=== PATIENT | female | born 1990 | race Caucasian/White ===

== ENCOUNTER 2017-05-10 21:18 | Emergency (ER) | payer SELFPAY ==
[2017-05-10] MEDS ORDERED: DIAZEPAM INJ 10 MG/2 ML DISP.SYRIN IM ONE (23:36)
--- NOTE | 2017-05-10 23:38 | ER Document Report ---
HPI - HPI Patient complains to provider of: lower back pain Pain Level: 5 Context: Patient is a 27-year-old female who comes emergency department with chief complaint of low back pain and muscle spasm. She states she started having symptoms after the gym about 2 weeks ago, she denies any impact injury or fall, she does report history of the same. She states she was seen by her primary care and placed on cyclobenzaprine and naproxen, states that it has helped minimally. She denies change in bowel or bladder function, numbness, fever, or history of HIV/Hep C/diabetes or IVDA. - CARDIOVASCULAR Cardiovascular: DENIES: Chest pain - REPRODUCTIVE Reproductive: DENIES: : - DERM Skin Color: Normal, [place] Past Medical History - General Information source: Patient - Social History Smoking Status: Current Every Day Smoker Chew tobacco use (# tins/day): No Frequency of alcohol use: Occasional Drug Abuse: None Lives with: Family Family History: Arthritis, CAD, DM, Hyperlipidemia, Hypertension, Malignancy Pulmonary Medical History: Reports: Hx Asthma Renal/ Medical History: Denies: Hx Peritoneal Dialysis Past Surgical History: Reports: Hx Adenoidectomy, Hx Myringotomy, Hx Nose Surgery - cauterized, Hx Tonsillectomy - Immunizations Immunizations up to date: Yes Hx Diphtheria, Pertussis, Tetanus Vaccination: Yes - 2007 [facility] Provider Document - CONSTITUTIONAL General Appearance: WD/WN, Mild Distress - Patient moves with obvious stiffness and discomfort, when sitting she is not in any distress - INFECTION CONTROL TRAVEL OUTSIDE OF THE [place] IN LAST 30 DAYS: No - HEENT HEENT: Atraumatic, Normal ENT Exam, Normocephalic - NECK Neck: Normal Inspection - RESPIRATORY Respiratory: Breath Sounds Normal, No Respiratory Distress O2 Sat by Pulse Oximetry: 97 - CARDIOVASCULAR Cardiovascular: Regular Rate, Regular Rhythm - GI/ABDOMEN Gastrointestinal: Abdomen Soft, Abdomen Non-Tender - BACK Back: negative: Normal Inspection - Patient tender with palpable spasm mainly over the left mid to upper lumbar paraspinal musculature, also tender on the paraspinal musculature on the right. No midline tenderness, no saddle anesthesia, normal upper and lower extremity range of motion, strength, distal neurovascular exam. Negative straight leg raise and axial load testing. - MUSCULOSKELETAL/EXTREMETIES Musculoskeletal/Extremeties: MAEW, FROM, Non-Tender - NEURO Level of Consciousness: Awake, Alert, Appropriate Course - Re-evaluation Re-evalutation: No concerning deficits or physical exam findings on exam. Appears to be muscular spasm. Treating with Valium because of patient's persistent symptoms on naproxen and Flexeril. Discussed follow-up, return precautions. Patient states understanding and agreement. - Vital Signs Vital signs: Temp Pulse Resp BP Pulse Ox 98.2 F 96 20 127/79 H 97 05/10/17 21:49 05/10/17 21:49 05/10/17 21:49 05/10/17 21:49 05/10/17 21:49 Discharge - Discharge Clinical Impression: Lower back pain Qualifiers: Chronicity: acute Back pain laterality: bilateral Sciatica presence: without sciatica Qualified Code(s): M54.5 - Low back pain Condition: Stable Disposition: HOME, SELF-CARE Additional Instructions: Your examination is most consistent with muscular strain of the lower back/ lumbar musculature. Apply heat to the area, avoid lifting/twisting, rest, take the prescribed medication as directed. Continue naproxen. Follow-up with primary care for additional management. Return to the emergency department for any concerning worsening symptoms including loss of bowel or bladder function, numbness, fever, or any other concerning symptoms. Prescriptions: Diazepam [Valium 5 mg Tablet] 1 - 2 tab PO TID #15 tablet Forms: Return to Work Referrals: NICKI BROOKE PA [Primary Care Provider] - Follow up as needed
[2017-05-11 00:48] VITALS: BP 131/76
== END 2017-05-11 00:25 | disposition home or self-care (01) ==
LOC: ER 21:18
DX: M54.5 Low back pain (principal); M62.830 Muscle spasm of back; J45.909 Unspecified asthma, uncomplicated; F17.200 Nicotine dependence, unspecified, uncomplicated
CPT/HCPCS: 99283; J3360

== ENCOUNTER 2017-09-16 13:55 | Emergency (ER) | payer OTHER ==
[2017-09-16 14:18] VITALS: BP 117/78
[2017-09-16] MEDS ORDERED: ASPIRIN 325 MG TABLET PO ONE (14:31)
--- NOTE | 2017-09-16 14:33 | ER Document Report ---
ED Medical Screen (RME) - General Chief Complaint: Chest Congestion Stated Complaint: FLU SYMPTOMS CHEST PAIN Time Seen by Provider: 09/16/17 14:31 Mode of Arrival: Ambulatory Information source: Patient TRAVEL OUTSIDE OF THE [place] IN LAST 30 DAYS: No - HPI Patient complains to provider of: cp, cough Onset: Other - pt seen at earlier today and sent here for evaluation of CP. Also having cough and congestion for the past few days. Is a smoker. Did not get flu shot this year - Related Data Allergies/Adverse Reactions: No Known Allergies Allergy (Verified 09/16/17 13:57) Past Medical History Pulmonary Medical History: Reports: Hx Asthma Renal/ Medical History: Denies: Hx Peritoneal Dialysis Past Surgical History: Reports: Hx Adenoidectomy, Hx Myringotomy, Hx Nose Surgery - cauterized, Hx Tonsillectomy - Immunizations Immunizations up to date: Yes Hx Diphtheria, Pertussis, Tetanus Vaccination: Yes - 2007 Physical Exam - Vital signs Vitals: Temp Pulse Resp BP Pulse Ox 98.4 F 78 18 117/78 98 09/16/17 14:17 09/16/17 14:17 09/16/17 14:17 09/16/17 14:17 09/16/17 14:17 Course - Vital Signs Vital signs: Temp Pulse Resp BP Pulse Ox 98.4 F 78 18 117/78 98 09/16/17 14:17 09/16/17 14:17 09/16/17 14:17 09/16/17 14:17 09/16/17 14:17
[2017-09-16 15:00] LABS: ABSOLUTE BASOPHILS # (AUTO) 0.1 10^3/uL (0.0-0.2); ABSOLUTE EOSINOPHILS # (AUTO) 0.3 10^3/uL (0.0-0.6); ABSOLUTE LYMPHOCYTES (AUTO) 2.9 10^3/uL (0.5-4.7); ABSOLUTE MONOCYTES (AUTO) 0.5 10^3/uL (0.1-1.4); BASOPHILS % (AUTO) 0.7 % (0-2); EOSINOPHILS % (AUTO) 3.9 % (0-6); HEMATOCRIT 42.8 % (36.0-47.0); HEMOGLOBIN 14.5 g/dL (12.0-15.5); HGB HCT DIFFERENCE 0.7; LYMPHOCYTES % (AUTO) 37.5 % (13-45); MEAN CORPUSCULAR HEMOGLOBIN 28.6 pg (27.0-33.4); MEAN CORPUSCULAR HGB CONC 33.8 g/dL (32.0-36.0); MEAN CORPUSCULAR VOLUME 85 fl (80-97); MONOCYTES % (AUTO) 6.9 % (3-13); RED BLOOD COUNT 5.07 10^6/uL (3.72-5.28); RED CELL DISTRIBUTION WIDTH 12.9 % (11.5-14.0); WHITE BLOOD COUNT 7.8 10^3/uL (4.0-10.5)
[2017-09-16 15:21] LABS: ALANINE AMINOTRANSFERASE 58 U/L (9-52); ALBUMIN 4.5 g/dL (3.5-5.0); ALKALINE PHOSPHATASE 74 U/L (38-126); ANION GAP 13 (5-19); ASPARTATE AMINO TRANSFERASE 41 U/L (14-36); BILIRUBIN,DIRECT 0.3 mg/dL (0.0-0.4); BILIRUBIN,TOTAL 0.5 mg/dL (0.2-1.3); BLOOD UREA NITROGEN 10 mg/dL (7-20); CALCIUM 9.8 mg/dL (8.4-10.2); CARBON DIOXIDE 26 mmol/L (22-30); CHLORIDE 106 mmol/L (98-107); CREATINE KINASE 131 U/L (30-135); CREATININE RESULT 0.74 mg/dL (0.52-1.25); GLUCOSE 77 mg/dL (75-110); POTASSIUM 4.9 mmol/L (3.6-5.0); SODIUM 144.9 mmol/L (137-145); TOTAL PROTEIN 7.7 g/dL (6.3-8.2)
[2017-09-16 15:32] LABS: CREATINE KINASE MB 0.48 ng/mL (<4.55)
[2017-09-16 15:34] LABS: TROPONIN I < 0.012 ng/mL
--- NOTE | 2017-09-16 15:39 | RADIOLOGY REPORT (SQ) ---
EXAM DESCRIPTION: CHEST PA/LAT COMPLETED DATE/TIME: 09/16/2017 3:00 pm REASON FOR STUDY: cp COMPARISON: 09/13/2015 EXAM PARAMETERS: NUMBER OF VIEWS: two views TECHNIQUE: Digital Frontal and Lateral radiographic views of the chest acquired. RADIATION DOSE: NA LIMITATIONS: none FINDINGS: LUNGS AND PLEURA: No opacities, masses or pneumothorax. No pleural effusion. MEDIASTINUM AND HILAR STRUCTURES: No masses or contour abnormalities. HEART AND VASCULAR STRUCTURES: Heart normal size. No evidence for failure. BONES: No acute findings. HARDWARE: None in the chest. OTHER: No other significant finding. IMPRESSION: NO SIGNIFICANT RADIOGRAPHIC FINDING IN THE CHEST. TECHNICAL DOCUMENTATION: JOB ID: [id number] [employer]- All Rights Reserved
--- NOTE | 2017-09-16 17:32 | ER Document Report ---
ED General - General Chief Complaint: Chest Congestion Stated Complaint: FLU SYMPTOMS CHEST PAIN Time Seen by Provider: 09/16/17 14:31 Mode of Arrival: Ambulatory Notes: Patient says she has had flulike symptoms for the past 6-7 days. She has had a cough that has been productive of clear phlegm, sneezing a lot, runny nose, along with vomiting. Not having significant diarrhea, however. She has chest pains from coughing. It is located under her left lateral breast. Patient thinks she has had some fever, as well. Did not get a flu shot this year. Patient went to a local urgent care, but was dissatisfied with their attitude and service and left and came here. LMP August. On no control. Never had any abdominal surgeries. Cigarette smoker. TRAVEL OUTSIDE OF THE [place] IN LAST 30 DAYS: No - Related Data Allergies/Adverse Reactions: No Known Allergies Allergy (Verified 09/16/17 14:32) Past Medical History - General Information source: Patient - Social History Smoking Status: Current Every Day Smoker Chew tobacco use (# tins/day): No Frequency of alcohol use: Social Drug Abuse: None Family History: Arthritis, CAD, DM, Hyperlipidemia, Hypertension, Malignancy Patient has suicidal ideation: No Patient has homicidal ideation: No Pulmonary Medical History: Reports: Hx Asthma Endocrine Medical History: Reports: Hx Diabetes Mellitus Type 2 - Told she is borderline diabetic., Hx Hyperthyroidism - History of Shaina's thyroiditis. On thyroid medication. Past Surgical History: Reports: Hx Adenoidectomy, Hx Myringotomy, Hx Nose Surgery - cauterized, Hx Tonsillectomy - Immunizations Immunizations up to date: Yes Hx Diphtheria, Pertussis, Tetanus Vaccination: Yes - 2007 Review of Systems - Review of Systems Notes: REVIEW OF SYSTEMS: CONSTITUTIONAL : Has had a fever and feels hot. EENT: Denies eye, ear, nose or mouth or throat pain or other symptoms. Sounds nasally congested. CARDIOVASCULAR: see HPI RESPIRATORY: See HPI. GASTROINTESTINAL: Denies abdominal pain or diarrhea. Has had some vomiting. GENITOURINARY: Denies difficulty or painful urinating, urinary frequency, blood in urine. MUSCULOSKELETAL: Denies back or neck pain. Denies joint pain or swelling. SKIN: Denies rash or skin lesions. NEUROLOGICAL: Denies LOC or altered mental status. Denies headache. Denies sensory loss or motor deficits. ALL OTHER SYSTEMS REVIEWED AND NEGATIVE. Physical Exam - Vital signs Vitals: Temp Pulse Resp BP Pulse Ox 98.4 F 78 18 117/78 98 09/16/17 14:17 09/16/17 14:17 09/16/17 14:17 09/16/17 14:17 09/16/17 14:17 Interpretation: Normal - Notes Notes: PHYSICAL EXAMINATION: GENERAL: Well-appearing, in no acute distress. Sounds congested. Occasional cough. HEAD: Atraumatic, normocephalic. ENT: oropharynx clear without exudates. Moist mucous membranes. NECK: Normal range of motion, supple. LUNGS: Breath sounds clear and equal bilaterally. No wheezes present. HEART: Regular rate and rhythm without murmurs. Heart rate in the upper 50s ABDOMEN: Soft, nontender. No guarding or rebound. BACK: No tenderness throughout entire back. EXTREMITIES: Normal range of motion without pain. No evidence of DVT. NEUROLOGICAL: Normal speech, normal gait. Normal sensory, motor, and reflex exams. Awake, alert, and oriented x3. Cranial nerves normal. PSYCH: Normal mood, normal affect. SKIN: Warm, dry, no rashes. Course - Vital Signs Vital signs: Temp Pulse Resp BP Pulse Ox 98.4 F 78 18 117/78 98 09/16/17 14:17 09/16/17 14:17 09/16/17 14:17 09/16/17 14:17 09/16/17 14:17 - Laboratory Result Diagrams: 09/16/17 14:39 09/16/17 14:39 Laboratory results interpreted by me: 09/16/17 09/16/17 14:39 14:39 Plt Count 455 H AST 41 H ALT 58 H - Diagnostic Test Radiology results interpreted by me: 09/16/17 18:08 Chest x-ray was normal. All labs essentially normal. Discharge - Discharge Clinical Impression: URI (upper respiratory infection) Condition: Stable Additional Instructions: UPPER RESPIRATORY ILLNESS: You have a viral infection of the respiratory passages -- a "cold." This common infection causes nasal congestion, drainage, and often sore throat and cough. It is highly contagious. The disease usually lasts about 10 to 14 days. There is no "cure" for the viral infection -- it must run its course. If there is a complication, such as bacterial infection in the nose, sinuses, middle ear, or bronchial tubes, antibiotics may be required. The antibiotics won't affect the virus. Drink plenty of fluids. A humidifier may help. An expectorant medication or decongestant may make you more comfortable. Use acetaminophen or ibuprofen for fever or aches. See the doctor if fever persists over two days, if there is any significant worsening of your symptoms, or if you simply fail to improve as expected. NORMAL EXAM AND WORKUP: At this time, your examination and workup show no significant abnormality. No significant abnormal physical findings were noted. All laboratory, EKG, and imaging (x-ray, CT scans, ultrasound) studies that were ordered show no significant abnormality. Although your examination and all studies that were ordered showed no significant abnormal finding, there are no examinations and no studies that are 100% accurate. There is always the possibility that some abnormality could exist and not be detected with physical examination or within the limits and capabilities of laboratory and other studies. You should return or follow up as you were instructed on your visit today for further evaluation if your symptoms do not resolve. COUGH-SUPPRESSANT & EXPECTORANT MEDICATION: You are to use a cough medication as needed for relief of symptoms. This medicine is a combination of an expectorant (to make the mucous thinner and more easily "coughed up") and a cough suppressant (to reduce the frequency of coughing). The cough-suppressant medicine is related to narcotics. You may experience mild nausea and sleepiness. Some patients who are very sensitive to narcotics may have stomach pain from this medicine. Taking the medicine with food reduces these side effects. Do not drive or work with machinery until you know how this medicine affects you. The expectorant should have no side effects. Iodine-containing expectorants (such as organidin) should not be taken by persons with active thyroid disease unless approved by your doctor. Call the doctor if you develop shortness of breath, hives, rash, itching, lightheadedness, or severe nausea and vomiting. USE OF ACETAMINOPHEN (Tylenol): Acetaminophen may be taken for pain relief or fever control. It's much safer than aspirin, offering a wider range of "safe" dosages. It is safe during . Some brand names are Tylenol, Panadol, Datril, Anacin 3, Tempra, and Liquiprin. Acetaminophen can be repeated every four hours. The following are maximum recommended dosages: >89 pounds or adults 650 mg to 900 mg Acetaminophen can be repeated every four hours. Maximum dose not to exceed 4000 mg a day. SMOKING: If you smoke, you should stop smoking. The tar and chemicals in cigarette smoke are harmful. Smoking has been shown to cause: emphysema chronic bronchitis lung cancer mouth and throat cancer stomach and pancreas cancer premature aging defects In addition, smoking increases ear and lung infections in children of smokers. FOLLOW-UP CARE: If you have been referred to a physician for follow-up care, call the physician s office for an appointment as you were instructed or within the next two days. If you experience worsening or a significant change in your symptoms, notify the physician immediately or return to the Emergency Department at any time for re-evaluation. Prescriptions: Hydrocodone/Acetaminophen [[place] 5-325 mg Tablet] 1 tab PO Q4HP PRN #20 tablet PRN Reason: Cough Forms: Return to Work
--- NOTE | 2017-09-17 09:20 | EKG REPORT ---
SEVERITY:- NORMAL ECG - SINUS RHYTHM : Confirmed by: David Cooley MD 17-Sep-2017 09:19:44
== END 2017-09-16 19:00 | disposition home or self-care (01) ==
LOC: ER 13:55
DX: J06.9 Acute upper respiratory infection, unspecified (principal); R05 Cough; R06.7 Sneezing; R09.89 Other specified symptoms and signs involving the circulatory and respiratory systems; R11.10 Vomiting, unspecified; R07.89 Other chest pain; F17.210 Nicotine dependence, cigarettes, uncomplicated; J45.909 Unspecified asthma, uncomplicated
CPT/HCPCS: 36415; 71020; 80053; 81025; 82550; 82553; 84484; 85025; 93005; 93010; 99284

== ENCOUNTER → 2018-03-13 | Day surgery (SDC) | payer OTHER ==
[~2018-03-13] MED LIST: LIDOCAINE 1% INJ-PF (10 MG/ML) 30 ML SDV ONE
--- NOTE | 2018-03-13 14:40 | RADIOLOGY REPORT (SQ) ---
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 TECHNIQUE: Patient has a midline neck mass between the thyroid bone and height weight which has grow n in size. This is the lesion targeted for biopsy. The procedure was discussed with the patient and written informed consent obtained. A timeout was pe rformed to confirm the procedure and patient's identity. The skin of the neck was prepped and draped in sterile fashion and 1 mL of 1% lidocaine administered for local anesthesia. Under sonographic g uidance, fine needle aspiration biopsy was performed of the palpable midline neck mass. Three separate aspirations were performed. Hemostasis was obtained with direct manual compression. There were no immediate complications. LIMITATIONS: None. FINDINGS: PATHOLOGY: Pending. IMPRESSION: ULTRASOUND-GUIDED BIOPSY PERFORMED OF A MASS IN THE MIDLINE NECK BETWEEN THE THYROID GLA ND AND HYOID BONE, POSSIBLY A REST OF THYROID TISSUE ALONG THE THYROGLOSSAL DUCT. PATHOLOGY PENDING AT THE TIME OF DICTATION. COMMENT: Patient medication list reviewed: Yes- Quality ID# [id number]:Eligible professional attests to doc umenting in the medical record they obtained, updated, or reviewed the patient's current medications. TECHNICAL DOCUMENTATION: JOB ID: [id number] [employer]- All Rights Reserved Reading location - IP/workstation name: [email or web address]
== END ==
LOC: RAD 12:37
PROVIDERS: ATTEND Nurse Practitioner Community Health
DX: E04.9 Nontoxic goiter, unspecified (principal)
CPT/HCPCS: 88173 ×2; 88305 ×2; 60100; J3490

== ENCOUNTER 2018-04-28 06:36 | Emergency (ER) | payer OTHER ==
[2018-04-28] MEDS ORDERED: ONDANSETRON 4 MG TAB.RAPDIS PO ONE (07:38)
[2018-04-28] MEDS ORDERED: NORMAL SALINE 1000 ML 1,000 ML IV ONE (07:38)
[2018-04-28] MEDS ORDERED: FENTANYL CITRATE INJ/PF 100 MCG/2 ML AMPUL IV ONE (07:38)
[2018-04-28 08:36] LABS: ABSOLUTE BASOPHILS # (AUTO) 0.1 10^3/uL (0.0-0.2); ABSOLUTE EOSINOPHILS # (AUTO) 0.4 10^3/uL (0.0-0.6); ABSOLUTE LYMPHOCYTES (AUTO) 2.9 10^3/uL (0.5-4.7); ABSOLUTE MONOCYTES (AUTO) 0.7 10^3/uL (0.1-1.4); ABSOLUTE NEUT (AUTO) 6.2 10^3/uL (1.7-8.2); BASOPHILS % (AUTO) 0.7 % (0-2); EOSINOPHILS % (AUTO) 3.8 % (0-6); HEMATOCRIT 39.6 % (36.0-47.0); HEMOGLOBIN 13.6 g/dL (12.0-15.5); LYMPHOCYTES % (AUTO) 28.1 % (13-45); MEAN CORPUSCULAR HEMOGLOBIN 29.3 pg (27.0-33.4); MEAN CORPUSCULAR HGB CONC 34.3 g/dL (32.0-36.0); MEAN CORPUSCULAR VOLUME 86 fl (80-97); MONOCYTES % (AUTO) 7.2 % (3-13); PLATELET COUNT 424 10^3/uL (150-450); RED BLOOD COUNT 4.63 10^6/uL (3.72-5.28); RED CELL DISTRIBUTION WIDTH 13.1 % (11.5-14.0); SEGMENTED NEUTROPHILS % (AUTO) 60.2 % (42-78); TOTAL CELLS COUNTED % (AUTO) 100 %; WHITE BLOOD COUNT 10.3 10^3/uL (4.0-10.5)
[2018-04-28 08:39] LABS: ALANINE AMINOTRANSFERASE 19 U/L (9-52); ALBUMIN 4.1 g/dL (3.5-5.0); ALKALINE PHOSPHATASE 66 U/L (38-126); ANION GAP 10 (5-19); ASPARTATE AMINO TRANSFERASE 21 U/L (14-36); BILIRUBIN,DIRECT 0.2 mg/dL (0.0-0.4); BILIRUBIN,TOTAL 0.2 mg/dL (0.2-1.3); BLOOD UREA NITROGEN 13 mg/dL (7-20); CALCIUM 9.7 mg/dL (8.4-10.2); CARBON DIOXIDE 27 mmol/L (22-30); CHLORIDE 107 mmol/L (98-107); GLUCOSE 98 mg/dL (75-110); LIPASE 181.7 U/L (23-300); POTASSIUM 4.8 mmol/L (3.6-5.0); SODIUM 144.4 mmol/L (137-145); TOTAL PROTEIN 7.1 g/dL (6.3-8.2)
--- NOTE | 2018-04-28 09:03 | RADIOLOGY REPORT (SQ) ---
EXAM DESCRIPTION: U/S ABDOMEN LIMITED W/O DOP COMPLETED DATE/TIME: 04/28/2018 8:38 am REASON FOR STUDY: RUQ COMPARISON: 10/24/2011 TECHNIQUE: Dynamic and static grayscale images acquired of the abdomen and recorded on PACS. Additio dragan selected color Doppler and spectral images recorded. LIMITATIONS: None. FINDINGS: PANCREAS: Limited visualization LIVER: Fatty liver. No masses. Normal size. LIVER VASCULATURE: Normal directional flow of the main portal vein and hepatic veins. GALLBLADDER: No stones. Normal wall thickness. No pericholecystic fluid. ULTRASOUND-DETECTED JACK'S SIGN: Negative. INTRAHEPATIC DUCTS AND COMMON DUCT: CBD and intrahepatic ducts normal caliber. No filling defects. INFERIOR VENA CAVA: Normal flow. AORTA: No aneurysm. RIGHT KIDNEY: Normal size. Normal echogenicity. No solid or suspicious masses. No hydronephrosis. No calcifications. PERITONEAL AND RIGHT PLEURAL SPACE: No ascites or effusions. OTHER: No other significant findings. IMPRESSION: Fatty liver. TECHNICAL DOCUMENTATION: JOB ID: [id number] [employer]- All Rights Reserved Reading location - IP/workstation name: [email or web address]
[2018-04-28 09:19] LABS: APPEARANCE,URINE CLEAR; BILIRUBIN,URINE NEGATIVE (NEGATIVE); COLOR,URINE YELLOW; GLUCOSE, URINE NEGATIVE (NEGATIVE); KETONES,URINE NEGATIVE (NEGATIVE); LEUKOCYTE ESTERASE,URINE TRACE (NEGATIVE); NITRITE,URINE NEGATIVE (NEGATIVE); PROTEIN,URINE NEGATIVE (NEGATIVE); URINE SPECIFIC GRAVITY 1.023; UROBILINOGEN,URINE NEGATIVE mg/dL (<2.0)
--- NOTE | 2018-04-28 09:38 | ER Document Report ---
ED GI/ - General Chief Complaint: Abdominal Pain Stated Complaint: FLANK PAIN Time Seen by Provider: 04/28/18 07:28 Mode of Arrival: Ambulatory Information source: Patient Notes: Patient states she woke up this morning at 6:00 with right upper quadrant abdominal pain. Patient states she has had nausea and vomiting for the past 2 days. Patient denies any fever or urinary symptoms. TRAVEL OUTSIDE OF THE [place] IN LAST 30 DAYS: No - HPI Patient complains to provider of: Abdominal pain, Vomiting Onset: This morning Timing/Duration: Sudden Quality of pain: Sharp Pain Level: 4 Location: RUQ Vaginal bleeding (Compared to normal period): None Menstrual period history: denies: Associated symptoms: Nausea, Vomiting. denies: Dysuria, Fever, Loss of appetite , Urinary hesitancy, Urinary frequency, Urinary retention, Urinary urgency, Vaginal discharge Exacerbated by: Denies Relieved by: Denies - Related Data Allergies/Adverse Reactions: bee venom protein (honey bee) Allergy (Verified 04/28/18 06:38) Past Medical History - General Information source: Patient - Social History Smoking Status: Current Every Day Smoker Smoking Education Provided: Yes Drug Abuse: None Occupation: Furniture Family History: Arthritis, CAD, DM, Hyperlipidemia, Hypertension, Malignancy Pulmonary Medical History: Reports: Hx Asthma Endocrine Medical History: Reports: Hx Diabetes Mellitus Type 2 - Told she is borderline diabetic., Hx Hyperthyroidism - History of Shaina's thyroiditis. On thyroid medication. Renal/ Medical History: Denies: Hx Peritoneal Dialysis Past Surgical History: Reports: Hx Adenoidectomy, Hx Myringotomy, Hx Nose Surgery - cauterized, Hx Tonsillectomy - Immunizations Immunizations up to date: Yes Hx Diphtheria, Pertussis, Tetanus Vaccination: Yes - 2007 Review of Systems - Review of Systems Constitutional: No symptoms reported. denies: Fever, Recent illness EENT: No symptoms reported Cardiovascular: No symptoms reported. denies: Chest pain Respiratory: No symptoms reported. denies: Cough, Short of breath Gastrointestinal: Abdominal pain, Nausea, Vomiting. denies: Diarrhea Genitourinary: No symptoms reported. denies: Dysuria, Flank pain Female Genitourinary: No symptoms reported. denies: Vaginal discharge Musculoskeletal: No symptoms reported Skin: No symptoms reported Hematologic/Lymphatic: No symptoms reported Neurological/Psychological: No symptoms reported Physical Exam - Vital signs Vitals: Temp Pulse Resp BP Pulse Ox 97.7 F 90 22 H 141/124 H 100 04/28/18 06:41 04/28/18 06:41 04/28/18 06:41 04/28/18 06:41 04/28/18 06:41 - General General appearance: Appears well In distress: None - HEENT Head: Normocephalic Eyes: Normal Conjunctiva: Normal Nasal: Normal Mouth/Lips: Normal Mucous membranes: Normal Neck: Normal, Supple. No: Lymphadenopathy - Respiratory Respiratory status: No respiratory distress Chest status: Nontender Breath sounds: Normal. No: Rales, Rhonchi, Stridor, Wheezing Chest palpation: Normal - Cardiovascular Rhythm: Regular Heart sounds: S1 appreciated, S2 appreciated Murmur: No - Abdominal Inspection: Morbidly Obese Distension: No distension Bowel sounds: Normal Tenderness: Tender - RUQ - Back Back: Normal, Nontender. No: CVA tenderness - Extremities General upper extremity: Normal inspection, Normal strength General lower extremity: Normal inspection, Normal strength - Neurological Neuro grossly intact: Yes Cognition: Normal [place] Coma Scale Eye Opening: Spontaneous Radha Coma Scale Verbal: Oriented Radha Coma Scale Motor: Obeys Commands [place] Coma Scale Total: 15 - Psychological Associated symptoms: Normal affect, Normal mood - Skin Skin Temperature: Warm Skin Moisture: Dry Skin Color: Normal Course - Re-evaluation Re-evalutation: 04/28/18 09:36 Patient reports abdominal pain is improved. No vomiting today. Ultrasound report reviewed, no concern for acute Cholecystitis, cholelithiasis or cholangitis. Patient nontoxic in appearance. Patient encouraged to follow-up with GI specialist on outpatient for further evaluation of fatty liver findings on ultrasound. - Vital Signs Vital signs: Temp Pulse Resp BP Pulse Ox 97.7 F 66 16 112/55 L 98 04/28/18 10:19 04/28/18 10:19 04/28/18 10:19 04/28/18 10:19 04/28/18 10:19 - Laboratory Result Diagrams: 04/28/18 08:18 04/28/18 08:18 Laboratory results interpreted by me: 04/28/18 07:32 Ur Leukocyte Esterase TRACE H 04/28/18 18:06 Labs- Entire Visit 04/28/18 04/28/18 04/28/18 07:32 08:18 08:18 WBC 10.3 RBC 4.63 Hgb 13.6 Hct 39.6 MCV 86 MCH 29.3 MCHC 34.3 RDW 13.1 Plt Count 424 Seg Neutrophils % 60.2 Lymphocytes % 28.1 Monocytes % 7.2 Eosinophils % 3.8 Basophils % 0.7 Absolute Neutrophils 6.2 Absolute Lymphocytes 2.9 Absolute Monocytes 0.7 Absolute Eosinophils 0.4 Absolute Basophils 0.1 Sodium 144.4 Potassium 4.8 Chloride 107 Carbon Dioxide 27 Anion Gap 10 BUN 13 Creatinine 0.68 Est GFR ( Amer) > 60 Est GFR (Non-Af Amer) > 60 Glucose 98 Calcium 9.7 Total Bilirubin 0.2 Direct Bilirubin 0.2 Neonat Total Bilirubin Not Reportable Neonat Direct Bilirubin Not Reportable Neonat Indirect Bili Not Reportable AST 21 ALT 19 Alkaline Phosphatase 66 Total Protein 7.1 Albumin 4.1 Lipase 181.7 Serum HCG, Qual Urine Color YELLOW Urine Appearance CLEAR Urine pH 6.0 Ur Specific Erwin 1.023 Urine Protein NEGATIVE Urine Glucose (UA) NEGATIVE Urine Ketones NEGATIVE Urine Blood NEGATIVE Urine Nitrite NEGATIVE Urine Bilirubin NEGATIVE Urine Urobilinogen NEGATIVE Ur Leukocyte Esterase TRACE H Urine WBC (Auto) 2 Urine RBC (Auto) 5 Squamous Epi Cells Auto 2 Urine Mucus (Auto) RARE Urine Ascorbic Acid NEGATIVE 04/28/18 08:18 WBC RBC Hgb Hct MCV MCH MCHC RDW Plt Count Seg Neutrophils % Lymphocytes % Monocytes % Eosinophils % Basophils % Absolute Neutrophils Absolute Lymphocytes Absolute Monocytes Absolute Eosinophils Absolute Basophils Sodium Potassium Chloride Carbon Dioxide Anion Gap BUN Creatinine Est GFR ( Amer) Est GFR (Non-Af Amer) Glucose Calcium Total Bilirubin Direct Bilirubin Neonat Total Bilirubin Neonat Direct Bilirubin Neonat Indirect Bili AST ALT Alkaline Phosphatase Total Protein Albumin Lipase Serum HCG, Qual NEGATIVE Urine Color Urine Appearance Urine pH Ur Specific Erwin Urine Protein Urine Glucose (UA) Urine Ketones Urine Blood Urine Nitrite Urine Bilirubin Urine Urobilinogen Ur Leukocyte Esterase Urine WBC (Auto) Urine RBC (Auto) Squamous Epi Cells Auto Urine Mucus (Auto) Urine Ascorbic Acid - Diagnostic Test Radiology reviewed: Reports reviewed Discharge - Discharge Clinical Impression: Abdominal pain Qualifiers: Abdominal location: right upper quadrant Qualified Code(s): R10.11 - Right upper quadrant pain Nausea and vomiting Qualifiers: Vomiting type: unspecified Vomiting Intractability: non-intractable Qualified Code(s): R11.2 - Nausea with vomiting, unspecified Condition: Stable Disposition: HOME, SELF-CARE Instructions: Abdominal Pain ([facility]), Antinausea Medication ([facility]), Intravenous ( IV) Fluids ([facility]), Vomiting ([facility]) Additional Instructions: Return immediately for any new or worsening symptoms Followup with your primary care provider, call tomorrow to make a followup appointment Follow-up with a university librarian for further evaluation Prescriptions: Ondansetron HCl [Zofran 4 mg Tablet] 1 - 2 tab PO Q6 PRN #15 tablet PRN Reason: Forms: Smoking Cessation Education, Return to Work Referrals: GERALDINE CAVAZOS FNP-C [Primary Care Provider] - Follow up as needed LAURA HONG MD [ACTIVE STAFF] - Follow up as needed DENISSE CHANEL MD [ACTIVE STAFF] - Follow up as needed
[2018-04-28 11:29] VITALS: BP 112/55
== END 2018-04-28 10:30 | disposition home or self-care (01) ==
LOC: ER 06:36
DX: R10.11 Right upper quadrant pain (principal); R11.2 Nausea with vomiting, unspecified; K76.0 Fatty (change of) liver, not elsewhere classified; F17.200 Nicotine dependence, unspecified, uncomplicated; J45.909 Unspecified asthma, uncomplicated; E11.9 Type 2 diabetes mellitus without complications; Z91.030 Bee allergy status
CPT/HCPCS: 99284; 96361; 96374; 36415; 83690; 84703; 85025; 80053; 81001; 76705; S0119; J3010; J7030

== ENCOUNTER → 2018-07-20 | Outpatient (CLI) | payer OTHER ==
--- NOTE | 2018-07-20 13:52 | RADIOLOGY REPORT (SQ) ---
EXAM DESCRIPTION: CT SOFT TISSUE NECK WITH COMPLETED DATE/TIME: 07/20/2018 1:12 pm REASON FOR STUDY: R22.1 LOCALIZED SWELLING, MASS AND LUMP, NECK R22.1 LOCALIZED SWELLING, MASS AND LUMP, NECK COMPARISON: None. TECHNIQUE: Post IV contrasted scanning from skull base through lung apices with review of bone, soft tissue and lung windows. Reconstructed coronal and sagittal MPR images reviewed. All images stored on PACS. All CT scanners at this facility use dose modulation, iterative reconstruction, and/or weight based d osing when appropriate to reduce radiation dose to as low as reasonably achievable (ALARA). [facility]: Dose Right [facility]: CareDose [facility]: Dose Right [facility]: Teradose 4D [facility]: AtheroNova CONTRAST TYPE AND DOSE: contrast/concentration: Isovue 350.00 mg/ml; Total Contrast Delivered: 75.0 ml; Total Saline Delivered: 55.0 ml RENAL FUNCTION: GFR > 60. RADIATION DOSE: . LIMITATIONS: None. FINDINGS: SKULL BASE: Intact. MAJOR SALIVARY GLANDS: No solid or cystic masses. No inflammatory changes. LYMPHADENOPATHY: No adenopathy. MUCOSAL MASSES OR ASYMMETRY: There is asymmetry in the left strap muscle at the level of the thyroid cartilage which corresponds to the BB marker on the patient's skin. An intrinsic mass is not identif ied. LARYNX/CORDS: No abnormal findings. VASCULAR STRUCTURES: The major vessels are patent. LUNG APICES: Clear. BONES: Intact. THYROID: Normal size. No masses. PARANASAL SINUSES: Clear. OTHER: No other significant finding. IMPRESSION: Asymmetry in the left strap muscle but no definitive mass or cystic lesion. TECHNICAL DOCUMENTATION: JOB ID: [id number] Quality ID # [id number]: Final reports with documentation of one or more dose reduction techniques (e.g., Au tomated exposure control, adjustment of the mA and/or kV according to patient size, use of iterative reconstruction technique) 2010 [employer]- All Rights Reserved Reading location - IP/workstation name: [email or web address]
== END ==
LOC: RAD 12:35
PROVIDERS: ATTEND Otolaryngology
DX: R22.1 Localized swelling, mass and lump, neck (principal)
CPT/HCPCS: 70491; 82565

== ENCOUNTER → 2019-11-22 | Outpatient (CLI) | payer BC ==
--- NOTE | 2019-11-26 14:26 | RADIOLOGY REPORT (SQ) ---
EXAM DESCRIPTION: MRI ORBIT/FACIAL/NECK COMBO COMPLETED DATE/TIME: 11/22/2019 1:22 pm REASON FOR STUDY: R22.1 LOCALIZED SWELLING, MASS AND LUMP, NECK R22.1 LOCALIZED SWELLING, MASS AND LUMP, NECK COMPARISON: CT soft tissue neck 07/20/2018 Left neck mass ultrasound-guided biopsy 03/13/2018 TECHNIQUE: Multiplanar imaging includes non-contrasted T1, T2, FLAIR, diffusion with ADC map and pos t gadolinium contrast sequences. Additional thin slice images with and without gadolinium contrast a cquired of the orbits. Images stored on PACS. CONTRAST TYPE AND DOSE: 20 mL Dotarem. RENAL FUNCTION: Not indicated. ACR Type II contrast agent associated with few, if any, unconfounded cases of NSF LIMITATIONS: Motion artifact, suboptimal imaging of the thoracic inlet/thyroid region FINDINGS: Along the ventral aspect of the left sternohyoid muscle, a well-circumscribed 3.2 cm crani ocaudad by 1.8 cm transverse by 1.4 cm AP mass is present. This is bright on T1 pre contrasted image s, dark on T2 weighted images with diffuse irregular enhancement, best shown on postcontrast axial se pauly 13, image 20. No tract to the skin surface is identified. No definite communication with the l arynx. No large feeding or draining blood vessels. This is discrete from the thyroid. Question bra nchial anomaly with complex cyst. This nodule was biopsied in 2018, which yielded no thyroid or foll icular cells or colloid. Macrophages were present, nonspecific. The thyroid gland is incompletely included in the field of view, and suboptimally visualized due to p atient respiratory motion. On the postcontrast T1 series 13, images 20-26, the thyroid gland is norm al size, heterogeneously enhancing with the numerous to count nodules. No cervical adenopathy. Major salivary glands are unremarkable. Paranasal sinuses, mastoid air cell s are clear. Visualized mucosal surfaces of the upper arrow digestive tract are unremarkable. Infer ior brain parenchyma in the field of view unremarkable. Cervical spine unremarkable. 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 TECHNICAL DOCUMENTATION: JOB ID: [id number] [employer]- All Rights Reserved Reading location - IP/workstation name: [email or web address]
== END ==
LOC: RAD 12:03
PROVIDERS: ATTEND Internal Medicine Endocrinology, Diabetes & Metabolism
DX: R22.1 Localized swelling, mass and lump, neck (principal)
CPT/HCPCS: 70543; A9576

== ENCOUNTER 2020-06-17 07:14 | Day surgery (SDC) | payer BC ==
[~2020-06-17 07:14] MED LIST changes: +LACTATED RINGERS 1000 ML IV PRN; +LIDOCAINE 0.5% INJ-PF (5 MG/ML) 50 ML SDV SUBCUT PRN; -LIDOCAINE 1% INJ-PF (10 MG/ML) 30 ML SDV ONE
[2020-06-17] MEDS ORDERED: CEFAZOLIN 2 GM/D5W RTU 2 GM/50 ML RTUPB IV ONE (07:32)
[2020-06-17] MEDS ORDERED: HYDROMORPHONE HCL INJ/PF 2 MG/ML AMPULE ONE (09:30)
[2020-06-17] MEDS ORDERED: FENTANYL CITRATE INJ/PF 100 MCG/2 ML AMPUL ONE (09:30)
[2020-06-17] MEDS ORDERED: PROPOFOL INJ 200 MG/20 ML VIAL IV ONE (09:30)
[2020-06-17] MEDS ORDERED: MIDAZOLAM 2 MG/2 ML INJ ONE (09:30)
[2020-06-17] MEDS ORDERED: LIDOCAINE 2%/EPINEPHRINE INJ 1.7 ML CARTRIDGE ONE (09:32)
[2020-06-17] MEDS ORDERED: BUPIVACAINE HCL 0.5%/EPI 1:200000 INJ 1.8 ML CARTRIDGE ONE (09:33)
[2020-06-17] MEDS ORDERED: BACITRACIN ZINC OINTMENT 15 GM ONE (09:33)
[2020-06-17] MEDS ORDERED: OXYMETAZOLINE HCL 0.05% NASAL SPRAY 15 ML BOTTLE ONE (09:33)
[2020-06-17] MEDS ORDERED: LIDOCAINE 2% INJ-PF (20 MG/ML) 2 ML AMPUL ONE (10:43)
[2020-06-17] MEDS ORDERED: ONDANSETRON HCL INJ/PF 4 MG/2 ML SDV ONE (10:43)
[2020-06-17] MEDS ORDERED: PROMETHAZINE HCL INJ 25 MG/1 ML VIAL IV PRN ×2 (10:43)
[2020-06-17] MEDS ORDERED: METOPROLOL TARTRATE PF/INJ 5 MG/5 ML SDV IV ONE (10:43)
[2020-06-17] MEDS ORDERED: SUCCINYLCHOLINE CHLORIDE INJ 200 MG/10 ML VIAL ONE (10:43)
[2020-06-17] MEDS ORDERED: FENTANYL CITRATE INJ/PF 100 MCG/2 ML AMPUL IV PRN ×3 (10:43)
[2020-06-17] MEDS ORDERED: ONDANSETRON HCL INJ/PF 4 MG/2 ML SDV IV PRN (10:43)
[2020-06-17] MEDS ORDERED: DIPHENHYDRAMINE HCL 50 MG/ML VIAL IV PRN (10:43)
[2020-06-17] MEDS ORDERED: MEPERIDINE HCL/PF INJ 25 MG/1 ML DISP.SYRIN IV PRN (10:43)
[2020-06-17] MEDS ORDERED: DEXAMETHASONE SOD PHOSPHATE INJ 4 MG/1 ML VIAL ONE (10:43)
[2020-06-17] MEDS ORDERED: HYDROMORPHONE HCL INJ/PF 2 MG/ML AMPULE IV PRN (10:44)
[2020-06-17] MEDS: FENTANYL CITRATE INJ/PF 100 MCG/2 ML AMPUL ONE ×2 (14:20→14:25)
[2020-06-17] MEDS ORDERED: HYDROCODONE/ACETAMINOPHEN 5-325 MG TABLET PO PRN (14:38)
[2020-06-17] MEDS ORDERED: HYDROCODONE/ACETAMINOPHEN 5-325 MG TABLET ONE ×2 (15:02→15:09)
[2020-06-17 17:01] VITALS: BP 132/85
[2020-06-17] MEDS ORDERED: ONDANSETRON HCL INJ/PF 4 MG/2 ML SDV IV SCH (18:00)
--- NOTE | 2020-06-21 07:34 | Operative Report ---
Operative Report[facility] Operative Report: Date of procedure: June 17, 2020 Preoperative diagnoses: 1. Left sided thyroglossal duct cyst 2. Left sided chronic neck pain with compressive symptoms 3. Excessive BMI of 47.89 Postoperative diagnoses: 1. Left sided thyroglossal duct cyst 2. Left sided chronic neck pain with compressive symptoms 3. Excessive BMI of 47.89 Operation performed: 1. Left side midline neck complex/complicated excision of/resection of thyroglossal duct cyst with tract and central hyoid bone resection consisting of [place] [address]. 2. There was extra/excessive time required for patient positioning before during and after the case due to excessive BMI of 47.89. Primary Surgeon of Record: Dr. Yordan Hernandez Anesthetic: General endotracheal tube anesthesia Anesthesia provider: LENNY Briceno Estimated blood loss: 10 mL Fluids: mL Complications: None Drains: None Sponge Count: Verified Needle Count: Verified Materials forwarded as specimen: 1. Left side of midline neck with a very firm/hard 3 x 2 cm nodule with cuff of sternohyoid muscle as the cyst/mass was within the substance of the muscle partially on the lateral aspect, thyroglossal duct cyst extension superiorly into the central/midportion of the hyoid bone which was resected as part of the specimen with continued thyroglossal duct cyst extension toward the base of tongue. Findings: 1. Left side of midline neck with a very firm/hard 3 x 2 cm nodule with cuff of sternohyoid muscle as the cyst/mass was within the substance of the muscle partially on the lateral aspect, thyroglossal duct cyst extension superiorly into the central/midportion of the hyoid bone which was resected as part of the specimen with continued thyroglossal duct cyst extension toward the base of tongue. 2. There were not any other nodules or masses of concern. Indications: This is a 30-year-old white female patient who has been seen and evaluated [facility]. The patient was also being followed by Dr. Henderson, endocrinology and [facility] and the patient has been complaining of symptoms consistent with a left side of midline neck thyroglossal duct cyst with previous FNAB in 2018 consistent with a cyst process and more recent neck ultrasounds with Dr. Henderson with findings concerning for a thyroglossal duct cyst process. The patient has been complaining chronically of worsening left neck pain and left side midline neck compressive symptoms and has desired to proceed with the removal of this thyroglossal duct cyst process. The Nii procedure was discussed in detail which she understands also involves the resection of the midline portion of her hyoid bone all of which she voiced an understanding of and is in agreement with. The patient voiced an understanding of the procedure/surgery and all of the risks and complications, and consent was obtained. Procedure: The patient was taken to the main operating room and placed on the operating room table in the supine position. Appropriate monitors were placed. Using mask and IV access, general anesthesia was induced. The patient was next transorally intubated without difficulty. The patient was then positioned for thyroglossal duct cyst/Ini surgery. The patient's anterior neck had a planned incision site marked with a surgical marking pen followed by infiltration with local anesthetic with epinephrine. The patient was then prepped and draped in a sterile fashion for thyroglossal duct cyst/cyst trunk surgery. Next, an incision was made down through the level of the subcutaneous tissues and platysma which was also mobilized laterally on each side. Using blunt and sharp dissection as well as Bovie and bipolar electrocautery skin/soft tissue flaps were elevated in a sub-platysmal fashion without difficulty. At this point the left sternohyoid strap muscle was more clearly identified as the very tightly adherent left side of neck midline thyroglossal duct cyst process was within the substance of the strap muscle. The very firm/hard thyroglossal duct cyst process was mobilized gently with a cuff of the strap muscle involved laterally with the resection process. The mass/cyst with superior tract directly into the mid/central portion of the hyoid bone was mobilized and isolated. The midsection/central portion of the hyoid bone was resected with use of rongeurs without difficulty. Minimal rough edges were trimmed/removed. The superior aspect of the tract toward the base of tongue was then resected and suture ligated with 3-0 silk suture and cauterized. The wound was thoroughly irrigated with normal saline and suctioned. Bipolar electrocautery was used to provide additional and adequate hemostasis. 2 pieces of Surgicel were placed into the wound bed. 5-0 Vicryl suture was used to reapproximate the deep layers of the wound. Next, 5-0 Monocryl suture was next utilized for re-approximation of the deep dermal tissue layer and for re- approximation of the skin margins via a continuous dermal suture. At this point the skin was cleaned and dried followed by placement of Mastisol, Steri-Strips, and a fluffs pressure dressing. The patient was then returned to the anesthesia staff and was allowed to emerge from general anesthesia. The patient was extubated in the main operating room and was then transported to the post- anesthesia recovery unit in stable condition. There were no complications.
== END 2020-06-17 16:45 | disposition home or self-care (01) ==
LOC: OROUT 07:14
PROVIDERS: ATTEND Otolaryngology
DX: Q89.2 Congenital malformations of other endocrine glands (principal); R22.1 Localized swelling, mass and lump, neck; M54.2 Cervicalgia; E07.9 Disorder of thyroid, unspecified; Z03.818 Encounter for observation for suspected exposure to other biological agents ruled out
CPT/HCPCS: 81025; 88305 ×2; 00320; 60280; U0003; J2250; J3490 ×4; J1100; J3010; J1170; J0330; J2405; J2704; J0690; C9803; 320; 87635